=== PATIENT | female | born 1980 | race Caucasian/White ===

== ENCOUNTER 2025-02-25 10:12 | Emergency (ER) | payer MEDICAID ==
[~2025-02-25] VITALS: Ht 170.2 cm; Wt 98.7 kg
[2025-02-25 10:27] VITALS: BP 148/94; PULSE 108; RESP 20; O2SAT 95
--- NOTE | 2025-02-25 10:45 | RADIOLOGY REPORT ---
CHEST RADIOGRAPH INDICATION: COUGH X15 DAYS TECHNIQUE: Frontal and lateral view of the chest was obtained COMPARISON: None FINDINGS: Lines and Tubes: None Lungs: Clear Pleura: No effusion. No pneumothorax. Cardiomediastinal contours: Unremarkable Bones: Unremarkable IMPRESSION: No evidence of acute disease.
--- NOTE | 2025-02-25 11:17 | Physician Documentation ---
History of Present Illness ~ Chief Complaint: Cough Stated Complaint: COUGH Time Seen by MD: 10:36 Primary Medical Doctor: Guzman melgoza [facility] This is a 45-year-old female with a history of smoking who presents with 16 days of productive cough she reports feels like it is getting worse, patient reports no chest pain or fever. Patient reports no other acute symptoms or concerns. Medication Reconciliation Allergies: Coded Allergies: phenobarbital (Unverified Allergy, Unknown, 02/25/25) prochlorperazine (Unverified Allergy, Unknown, 02/25/25) Scheduled Doxycycline Hyclate (Doxycycline Hyclate), 1 CAP PO Q12H Guaifenesin (Guaifenesin), 1 TAB PO Q8H Scheduled PRN albuterol inhaler (Pro-Air Inhaler), 1-2 PUFFS PO Q4H PRN for shortness of breath Past Medical History Past Medical History: No Pertinent History Review of Systems ROS As stated above in the HPI, otherwise all systems are reviewed and negative. Physical Exam Vital Signs: Temperature: 97.5, Source: Temporal, Heart Rate: 108, Respiratory Rate: 20, BP: 148/94, Pulse Oximetry: 95, Weight: 98.700 Oxygen Flow Rate: 0 Physical Exam VITALS: Reviewed and as above. GENERAL: Alert, nontoxic appearing, no apparent distress. RESPIRATORY: No increased work of breathing, no respiratory distress, speaking in full clear sentences, and inspiratory wheezes in bases greatest in left lower field CV: Regular rate and rhythm no murmur Progress Results/Orders Results/Orders Completed Orders - JELANI LEE [employer] Dexamethasone Inj (Decadron 10mg/Ml Inj) (02/25/25 11:21) Doxycycline 100mg Capsule (Vibramycin 10 (02/25/25 11:21) Vital Signs 02/25/25 02/25/25 10:27 11:39 Temp 97.5 97.5 Pulse 108 Resp 20 B/P (MAP) 148/94 Pulse Ox 95 O2 Flow Rate 0 EKG/XRAY/CT/US/VASC/MRI Chest X-Ray : Additional Comments Exam: CHEST,TWO VIEWS CHEST RADIOGRAPH INDICATION: COUGH X15 DAYS TECHNIQUE: Frontal and lateral view of the chest was obtained COMPARISON: None FINDINGS: Lines and Tubes: None Lungs: Clear Pleura: No effusion. No pneumothorax. Cardiomediastinal contours: Unremarkable Bones: Unremarkable IMPRESSION: No evidence of acute disease. Electronically Signed by:SIVAKUMAR BELLAMY MD Date & Time: 02/25/25 1042 Dictated by: SIVAKUMAR BELLAMY MD Dictation date and time: 02/25/25 1035 I have reviewed and agree with the radiology report. I have reviewed and interpreted the imaging as: No focal consolidation or pneumothorax Medical Decision Making Additional information obtaine: N/A Findings This otherwise well-appearing 45-year-old female presented with 16 days of productive cough which she reports as worsening, it is reassuring patient reports no chest pain or fever. Chest x-ray was negative for focal consolidations to suggest pneumonia though due to duration of symptoms and feeling of worsening symptoms along with focal wheezing on physical exam I have concern for early pneumonia which antibiotics are indicated for especially given patient's risk factors of being a smoker. Patient is otherwise well-appearing with remainder of physical exam benign, is hemodynamically stable and is appropriate for outpatient follow up. Patient provided careful return to care precautions, follow up instructions, and home care instructions which she verbalized understanding of. Differential Dx:Considerations: Include: Allergic rhinitis, Influenza, Otitis media, Peritonsillar abscess, Pharyngitis-Diphtheria, Pharyngitis-Streptoccal, Pharyngitis-Viral, Pneumonia, Pnuemonitis, Sinusitis, URI, Other (GERD, bronchitis) Departure Time of Disposition: 11:16 Disposition: 01 HOME / SELF CARE / HOMELESS Impression: Primary Impression: Community acquired pneumonia Qualified Codes: J18.9 - Pneumonia, unspecified organism Condition: Improved Discharge Instructions: Community-Acquired Pneumonia, Adult Additional Instructions: Please take antibiotics as prescribed, use the prescribed inhaler as needed for shortness of breath or wheezing. Please follow up with your primary care provider in the next few days. Please return to the emergency department for any new or worsening concerning symptoms including but not limited to shortness of breath, difficulty breathing, chest pain, or if you develop a fever over 100.4 that does not lower with ibuprofen or Tylenol. Referrals: NO PRIMARY CARE PROVIDER (PCP) Prescriptions Guaifenesin (Guaifenesin) 400 Mg Tablet 1 TAB PO Q8H for cough for 5 Days, #15 TAB 0 Refills Prov: JELANI LEE 02/25/25 albuterol inhaler (Pro-Air Inhaler) 8.5 Gm Inhaler 1-2 PUFFS PO Q4H PRN for shortness of breath, #1 INH Prov: JELANI LEE 02/25/25 Doxycycline Hyclate (Doxycycline Hyclate) 100 Mg Capsule 1 CAP PO Q12H for 5 Days, #10 CAP Prov: JELANI LEE 02/25/25 Education Educated: Patient Educated regarding: diagnosis, treatment, prognosis, need for follow up Signature Scribe Signature: No scribe Attestation: The note accurately reflects work and decisions made by me.TIFFANY Davis 02/26/25 10:11 JELANI LEE Feb 25, 2025 11:17
[2025-02-25] MEDS ORDERED: ALBU8HFA PO (11:25)
[2025-02-25] MEDS ORDERED: DOXY-225 PO (11:25)
[2025-02-25] MEDS ORDERED: GUAI400T92 PO (11:25)
[2025-02-25] MEDS: DOXYCYCLINE 100MG CAPSULE PO STA (11:30)
[2025-02-25] MEDS: dexamethasone sod phosphate 10mg/ml inj PO STA (11:30)
[2025-02-25 11:39] VITALS: TEMP 97.5
== END 2025-02-25 11:40 | disposition home or self-care (01) ==
LOC: ER 10:13
DX: J18.9 Pneumonia, unspecified organism (principal); Z87.891 Personal history of nicotine dependence
CPT/HCPCS: 71046; 99283; J1100